=== PATIENT | male | born 1985 | race Two or more races ===

== ENCOUNTER 2024-02-12 18:17 | Emergency (ER) | payer MEDICAID ==
[~2024-02-12] VITALS: Ht 170.2 cm; Wt 81.6 kg
[2024-02-12 18:20] VITALS: BP 118/60; TEMP 98.7; O2SAT 99
== END 2024-02-12 22:24 | disposition left against medical advice (07) ==
LOC: ER 18:29
DX: R46.1 Bizarre personal appearance (principal); R06.02 Shortness of breath; Z53.21 Procedure and treatment not carried out due to patient leaving prior to being seen by health care provider